=== PATIENT | female | born 2005 | race African-American/Black ===

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

== ENCOUNTER 2024-01-27 11:53 | Emergency (ER) | payer MEDICAID, SELFPAY ==
--- NOTE | 2024-01-27 12:21 | ED_ITS ---
HPI - General Adult General Stated complaint: Pain from Ovarian Cyst Related Data Home Medications ?Medication ?Instructions ?Recorded ?Confirmed melatonin 10 mg capsule 10 mg PO BEDTIME sleep 07/10/20 07/10/20 Previous Rx's ?Medication ?Instructions ?Recorded amoxicillin 875 mg-potassium 1 tab PO Q12H #20 tabs 10/30/20 clavulanate 125 mg tablet (Augmentin) diphenhydramine HCl 25 mg capsule 25 mg PO TID PRN allergic reaction 10/30/20 (Benadryl) #30 caps famotidine 20 mg tablet (Pepcid) 20 mg PO BID #20 tabs 10/30/20 prednisone 20 mg tablet 40 mg (2 x 20 mg) PO DAILY #10 tabs 10/30/20 azithromycin 250 mg tablet See Rx Instructions PO .COMPLEX #6 01/04/21 (Zithromax Z-Stephan) tabs ibuprofen 600 mg tablet 600 mg PO Q6H PRN pain #40 tabs 08/05/21 naproxen 500 mg tablet 500 mg PO BID 7 days #14 tabs 07/01/23 prednisone 20 mg tablet 20 mg PO DAILY 7 days #7 tabs 07/01/23 Allergies Allergy/AdvReac Type Severity Reaction Status Date / Time No Known Allergies Allergy Verified 12/15/23 12:40 [No Known Allergies*] [facility] Past Medical History Medical History Benign cyst of left breast Surgical History No significant past surgical history Family History Family History Mother No problems noted. Father No problems noted. Maternal Aunt Breast cancer Social History Social History (System 12/15/23 @ 12:40 by Ana Woods) Current occupational status: student Current occupation: [employer] Discharge Plan Discharge Clinical Impression: Eloped from emergency department Patient Disposition: Left W/O Completing Treatment Prescriptions: No Action diphenhydramine HCl [Benadryl] 25 mg capsule 25 mg PO TID PRN (Reason: allergic reaction) Qty: 30 0RF prednisone 20 mg tablet 40 mg PO DAILY Qty: 10 0RF famotidine [Pepcid] 20 mg tablet 20 mg PO BID Qty: 20 0RF amoxicillin-pot clavulanate [Augmentin] 875-125 mg tablet 1 tab PO Q12H Qty: 20 0RF azithromycin [Zithromax Z-Stephan] 250 mg tablet See Rx Instructions .ROUTE .COMPLEX Qty: 6 0RF Rx Instructions: take 500 mg today (day 1), then 250 mg for 4 days (days 2-5) ibuprofen 600 mg tablet 600 mg PO Q6H PRN (Reason: pain) Qty: 40 0RF prednisone 20 mg tablet 20 mg PO DAILY 7 Days Qty: 7 0RF naproxen 500 mg tablet 500 mg PO BID 7 Days Qty: 14 0RF melatonin 10 mg capsule 10 mg PO BEDTIME Interventions: LWBS Worksheet Last Done: 01/27/24 12:45 Discharge Date/Time: 01/27/24 13:09
== END 2024-01-27 13:09 | disposition left against medical advice (07) ==
LOC: HO.ED 13:06
PROVIDERS: Emergency Provider Emergency Medicine; PCP Pediatrics
DX: Z53.21 Procedure and treatment not carried out due to patient leaving prior to being seen by health care provider (principal); N83.209 Unspecified ovarian cyst, unspecified side

== ENCOUNTER 2024-02-01 17:25 | Outpatient (REF) | payer MEDICAID, SELFPAY ==
[2024-02-02 11:51] LABS: CT PCR NOT DETECTED (Not Detect.); NG PCR NOT DETECTED (Not Detect.)
== END 2024-02-01 17:26 | disposition home or self-care (01) ==
LOC: HO.HHCLNP 17:25
PROVIDERS: Visit Provider Pediatrics
DX: Z30.09 Encounter for other general counseling and advice on contraception (principal)
CPT/HCPCS: 0353U

== ENCOUNTER 2024-12-08 14:13 | Outpatient (REF) | payer MEDICAID, SELFPAY ==
--- OUTSIDE RECORDS SUMMARY | 2024-12-08 19:38 | XMS_ITS | Clinical Summary ---
Author Organization [employer] Address [address] [place] [address] [address] [place] [address] Care Team Providers Care Air Pollution Control Engineer Name Role Phone [facility] Primary Care Provider Allergies No known active allergies Medications No known medications Active Problems No known active problems Resolved Problems Problem Noted Date Diagnosed Date Resolved Date COVID-19 09/10/2022 01/26/2023 Reduced visual acuity 09/10/20222022 Encounters Date Type Department Care Team Description 12/08/2024 1:45 PM EST Office Visit [facility] [address] [place] [address] Aurora Alvarez CNM Checking of intrauterine device (Primary Dx); Encntr screen for infections w sexl mode of transmiss; Urinary frequency 12/08/2024 Travel 10/14/2024 Travel from Last 3 Months Immunizations Name Administration Dates Next Due DTaP 12/04/2008,08/07/2005,2004 DTaP / Hep B / IPV 2004,2004 HPV 9-Valent 12/16/2017,05/27/2016,02/18/2016 Hep A, ped/adol, 2 dose 02/18/2016 Hep A, ped/adol, 3 dose 02/04/2011 Hep B, Adolescent or Pediatric 2004,2003 Hib (HbOC) 08/07/2005, 5,2004,06/12 IPV 12/04/2008,2004 Influenza Injectable Quadriv alant Preservative Free IIV4 MDCK 11/21/2022 Influenza injectable quadriv alent preservative free 09/05/2020,06/27/2019,12/16/2017 Influenza live intranasal qu adrivalent LIAV4 08/11/2014 Influenza, IIV3, injectable 07/23/2011, 9,08/07/2005 MMR 12/04/2008,04/14/2005 Meningococcal MCV4P ACYW-135 09/05/2020,02/18/20 16 Pneumococcal Conjugate PCV 7 08/07/2005, 2004,2004,06/12 Rabies, intramuscular 03/29/2018 Tdap 02/18/2016 Varicella 12/04/2008,04/14/2005 Social History Tobacco Use Types Packs/Day Years Used Date Smoking Tobacco: Never Smokeless Tobacco: Never Tobacco Cessation:Counseling Given: Not Answered Alcohol Use Standard Drinks/Week Comments Never 0 (1 standard drink = 0.6 oz pur e alcohol) Depression Answer Date Recorded Patient Health Questionnaire-9 Score 2 01/26/2023 Housing Stability Answer Date Recorded What is your housing situation today? I have [employer] 07/22/[address] you li ve. Do you have problems with any of the following? None of the above 07/22/2023 Food Insecurity Answer Date Recorded Within the past 12 months, y ou worried that your food would run out before you got money to buy more: Never True 07/22/2023 Within the past 12 months,th e food you bought just didn't last and you didn't have enough money to get more: Never True Transportation Answer Date Recorded In the past 12 months, has l ack of transportation kept you from medical appts, meetings, work or from getting things needed for daily living? No 07/22/2023 Utilities Answer Date Recorded In the past 12 months, has t he electric, gas, oil or water company threatened to shut off services in your home? No 07/22/2023 Depression Answer Date Recorded Patient Health Questionnaire-2 Score 0 01/26/2023 Comments No Sex and Gender Information Value Date Recorded Sex Assigned at Female 08/04/2022 10:18 AM EDT Legal Sex Female 10:18 AM EDT Gender Identity Female 08/04/2022 10:18 AM EDT Sexual Orientation Straight 08/04/2022 10 :18 AM EDT Last Filed Vital Signs Vital Sign Reading Time Taken Comments Blood Pressure 130/60 12/08/2024 1:54 PM EST Pulse 84 12/08/2024 1:54 PM EST Temperature 36.2 ??C (97.1 ??F) 12/08/2024 1:54 PM ES T Respiratory Rate 20 12/08/2024 1:54 PM EST Oxygen Saturation 99% 12/08/2024 1:54 PM EST Inhaled Oxygen Concentration - - Weight 90.4 kg (199 lb 6.4 oz) 12/08/2024 1:54 P M EST Height 170.2 cm (5' 7 ) 12/08/2024 1:54 PM EST Body Mass Index 31.23 12/08/2024 1:54 PM EST Plan of Treatment Health Maintenance Due Date Last Done Comments Hepatitis B Vaccines (4 of 4 - 4-dose series) 2004 2004, 2004, 2004, Additional history exists Alcohol/Substance Use Screening 2016 Hepatitis A Vaccines (2 of 2 - 2-dose series) 08/20/2016 02/18/2016 Depression Screening 01/27/2024 01/26/2023, 01/27/20 23 COVID-19 Vaccine ( season) 2024 11/21/2022, 06/03/2021 Influenza Vaccine (#1) 2024 , 09/05/2020, 06/27/2019, Additional history exists SDOH Screening 01/24/2025 01/25/2024 Chlamydia and Gonorrhea Screening 01/31/2025 02/01/2024, 07/27/2023, 01/26/2023, Additional history exists Family Planning (PISQ) 12/08/2025 12/08/2024 Tobacco Screening 12/08/2025 12/08/2024 DTaP/Tdap/Td Vaccines (7 - Td or Tdap) 02/17/2026 02/18/2016, 12/04/2008, 08/07/2005, Additional history exists Zoster Vaccines (1 of 2) 2054 RSV Patients and Patients Aged 60 years or older (1 - 1-dose 75+ series) 2079 HIB Vaccines Completed 08/07/2005, 11/06, 2004, Additional history exists Pneumococcal Vaccine: Pediatrics (0 to 5 Years) and At-Risk Patients (6 to 49) Years) Aged Out 08/07/2005, 2004, 2004, Additional history exists No longer eligible based on patient's age to complete this topic IPV Vaccines Completed 12/04/2008, 11/06, 2004, Additional history exists HPV Vaccines Completed 12/16/2017, 05/06, 02/18/2016 Meningococcal Vaccine Completed 09/05/2020, 016 Hepatitis C Screening Completed 01/26/2023 HIV Screening Completed 07/28/2023, 01/26/2023 RSV under 20 months Aged Out No longe r eligible based on patient's age to complete this topic Rotavirus Vaccines Aged Out No longer eligible based on patient's age to complete this topic Procedures Procedure Name Priority Date/Time Associated Diagnosis Comments POCT URINALYSIS DIPSTICK Routine 12/08/2024 2:22 PM EST Urinary frequency POCT , URINE Routine 12/08/2024 2:14 PM EST Urinary frequency CHLAMYDIA/N. GONORRHOEAE RNA, TMA, UROGENITAL Routine 02/01/2024 11:19 AM EDT General counseling and advice on contraceptive management HIV ANTIBODY/ANTIGEN ([place] DPH) Routine 07/28/2023 8:56 AM EDT HEPATITIS C AB W/REFL TO HCV RNA, QN, PCR Routine 01/26/2023 3:33 PM EDT General counseling and advice on contraceptive management from Last 3 Months or Most Recently Relevant to Health Maintenance Results * POCT urinalysis dipstick manually resulted (12/08/2024 2:22 PM EST) Color, UA Yellow Clarity, UA Clear Glucose, UA Negative Bilirubin, UA Negative Ketones, UA Negative Spec Grav, UA 1.030 Blood, UA Negative Negative, None Detected pH, UA 5.5 Protein, UA 1+ 70+ Comment:30mg Urobilinogen, UA 1.0 Leukocytes, UA Negative Negative, Rare, Trace Nitrite, UA Negative Negative, None Detected QC Media Lot # [id number] Lot# Expiration Date Urine 12/08/2024 2:22 PM EST [facility] POINT OF CARE TEST ENTER/ EDIT ORDERABLES Final Result * POCT , urine manually resulted (12/08/2024 2:14 PM EST) Preg Test, Ur Negative Negative, Indeterminate, None Detected, Invalid, Specimen unsatisfactory for evaluation, Weakly Positive QC Media Lot # [id number] Lot# Expiration Date , Urine 12/08/2024 2:14 PM EST [facility] POINT OF CARE TEST ENTER/ EDIT ORDERABLES Final Result * Chlamydia/N. Gonorrhoeae RNA, TMA, Urogenitial (02/01/2024 11:19 AM EDT) CT PCR NOT DETECTED Not Detect. [facility] Comment:A not detected test result does not exclude the possibilityof infection because test results can be affected byimproper specimen collection, concurrent antibiotic therapy,or the number of organisms in the specimen which may bebelow the sensitivity of the test. As with many diagnostictests, results from the Xpert CT/NG assay should beinterpreted in conjunction with other laboratory andclinical data available to the clinician.Xpert CT/NG performance has not been evaluated in patientsless than 14 years of age. The assay should not be used forthe evaluationof suspected sexual abuse or for other medico-legalindications. Additional testing is recommended in anycircumstance when false positive or false negative resultscould lead to adverse medical, social or psychologicalconsequences. NG PCR NOT DETECTED Not Detect. [facility] Comment:A not detected test result does not exclude the possibilityof infection because test results can be affected byimproper specimen collection, concurrent antibiotic therapy,or the number of organisms in the specimen which may bebelow the sensitivity of the test. As with many diagnostictests, results from the Xpert CT/NG assay should beinterpreted in conjunction with other laboratory andclinical data available to the clinician.Xpert CT/NG performance has not been evaluated in patientsless than 14 years of age. The assay should not be used forthe evaluationof suspected sexual abuse or for other medico-legalindications. Additional testing is recommended in anycircumstance when false positive or false negative resultscould lead to adverse medical, social or psychologicalconsequences. Urine (Urine, Random) 02/01/2024 11:19 AM EDT 02/01/2024 5:36 PM EDT Narrative [facility] - 02/02/2024 11:51 AM EDT Urine Christiane Gomez DO LAB MICROBIOLOGY - GENERAL OR DERABLES Final Result [facility] [address] [place] [address] [phone] * HIV Ab/Ag ([place] H) (07/28/2023 8:56 AM EDT) Pathologist [facility] HIV AB/AG Nonreactive Nonreactive [facility] Comment:HIV-1 p24 Ag and/or HIV-1/HIV-2 Ab not detected.A test result that is nonreactive does not exclude thepossibility of exposure to or infection with HIV-1 and/orHIV-2. Nonreactive results in this assay for individualswith prior exposure to HIV-1 and/or HIV-2 may be due toantigen and antibody levels that are below the limit ofdetection of this assay.The [employer] HIV Ag/Ab Combo assay result andsupplemental assay results should be interpreted inconjunction with the patient's clinical presentation,history and other laboratory results. If the results areinconsistent with clinical evidence, additional testing issuggested to confirm the result. 07/28/2023 8:56 AM EDT 07/28/2023 11:13 AM EDT Aurora Kim CN LAB BLOOD ORDERABLES Rosemary baxter Result [facility] [address] [place] [address] [phone] * Hepatitis C Antibody with Reflex to HCV, RNA, Quantitative, Real-Time PCR (01/26/2023 3:33 PM EDT) Hepatitis C Antibody NON-REACT MARY NON-REACT MARY [facility] Diagnost Index 0.13 <1.00 [facility] Comment: HCV antibody was non-reactive. There is no laboratory evidence of HCV infection. In most cases, no further action is required. However, if recent HCV exposure is suspected, a test for HCV RNA (test code 05120) is suggested. For additional information please refer to http://education.Factabase/faq/GZW88y7 (This link is being provided for informational/ educational purposes only.) Blood Venous blood specimen / Unknown 01/26/2023 3:33 PM EDT 01/26/2023 3:34 PM EDT Christiane Gomez DO LAB BLOOD ORDERABLES Final Re sult Performing Organization Address City/[facility] Co de Phone Number [facility] [address], [place] [address] [email or web address] [address] [place] [address] from Last 3 Months or Most Recently Relevant to Health Maintenance Insurance HSN PARTIAL Care Teams Air Pollution Control Engineer Relationship Specialty Start Date End Date Sophia Chance FNP [address] [place] [phone] PCP - General Family Medicine 04/27/24
--- OUTSIDE RECORDS SUMMARY | 2024-12-08 19:39 | XMS_ITS | Encounter Summary ---
Author Organization [employer] Address [address] [place] [address] Care Team Providers Care Wood Casket Assembler Name Role Phone [facility] Primary Care Provider [phone] Encounter Details Date Type Department Care Team (Latest Contact Info) Description 12/08/2024 Travel Social History Tobacco Use Types Packs/Day Years Used Date Smoking Tobacco: Never Smokeless Tobacco: Never Alcohol Use Standard Drinks/Week Comments Never 0 [...] Orientation Straight 08/04/2022 10 :18 AM EDT documented as of this encounter Plan of Treatment Not on file documented as of this encounter Visit Diagnoses Not on filedocumented in this encounter Additional Health Concerns Assessment Noted Time PHQ-9 Depression Total Score: 2 01/27/20 23 6:42 PM EDT documented as of this encounter Care Teams Wood Casket Assembler Relationship Specialty Start Date End Date Sophia Chance FNP [address] [place] [phone] PCP - General Family Medicine 04/27/24 documented as of this encounter
--- OUTSIDE RECORDS SUMMARY | 2024-12-08 19:39 | XMS_ITS | Encounter Summary ---
Author Organization [employer] Address [address] [place] [address] Care Team Providers Care Lace Finisher Name Role Phone [facility] Primary Care Provider [phone] Encounter Details Date Type Department Care Team ([facility] st Contact Info) Description 12/08/2024 1:45 PM EST Office Visit [facility] [address] [place], [place] [phone] Aurora Alvarez CNM [address] [place], [place] [phone] Checking of intrauterine device (Primary Dx); Encntr screen for infections w sexl mode of transmiss; Urinary frequency Social History Tobacco Use Types Packs/Day Years [...] AM EDT documented as of this encounter Last Filed Vital Signs Vital Sign Reading [...] Mass Index 31.23 12/08/2024 1:54 PM EST documented in this encounter Progress Notes * Aurora Alvarez, RAQUEL - 12/08/2024 1:45 PM EST Subjective Patient ID: Jeri Martinez is a 19 y.o. female who presents for MAILER visit Notes some urinary frequency and suprapubic pressure recently. No other vaginal or urinary symptoms. Liletta inserted 10/2022. Gonorrhea/chlamydia/trichomonas, HIV and syphilis negative 07/2023. Strings not seen on previous visit, ultrasound showed IUD in good position, 1.5cm CL 12/2023. Gonorrhea/Chlamydia neg 01/2024. Happy with IUD, largely amenorrheic. Not planning in the next year. 1AMAB partner x 2y, no safety concerns. Agrees to Gonorrhea/Chlamydia testing today. Review of Systems Constitutional: Negative for chills and fever. Gastrointestinal: Negative for abdominal pain. Genitourinary: Positive for frequency. Negative for dyspareunia, dysuria, flank pain, hematuria, menstrual problem, pelvic pain, vaginal discharge and vaginal pain. Musculoskeletal: Negative for back pain. Objective BP 130/60 (BP Location: Left arm, Patient Position: Sitting, BP Cuff Size: Adult) Pulse 84 Temp97.1 ??F (36.2 ??C) (Temporal) Resp 20 Ht 5' 7 (1.702 m) Wt 199 lb 6.4 oz (90.4 kg) SpO2 99% BMI 31.23 kg/m?? Physical Exam Constitutional: Appearance: Normal appearance. Abdominal: Tenderness: There is no right CVA tenderness or left CVA tenderness. Genitourinary: General: Normal vulva. Labia: Right: No rash, tenderness, lesion or injury. Left: No rash, tenderness, lesion or injury. Vagina: Normal. No signs of injury and foreign body. No vaginal discharge, erythema, tenderness, bleeding or lesions. Cervix: No cervical motion tenderness, discharge, friability, lesion, erythema, cervical bleeding or eversion. Uterus: Normal. Not enlarged and not tender. Adnexa: Right adnexa normal and left adnexa normal. Right: No mass, tenderness or fullness. Left: No mass, tenderness or fullness. Comments: IUD strings noted just inside os. Body of IUD not palpable Neurological: Mental Status: She is alert. Psychiatric: Mood and Affect: Mood normal. Behavior: Behavior normal. Assessment/Plan Diagnoses and all orders for this visit: Checking of intrauterine device Remove/replace IUD by 8 y from insertion. May remove any time before then if desired. test negative today. Pap after she turns 20. Encntr screen for infections w sexl mode of transmiss - Chlamydia/N. Gonorrhoeae RNA, TMA, Urogenitial Urinary frequency - POCT , urine manually resulted - POCT urinalysis dipstick manually resulted - Culture, Urine, Routine UA not consistent with UTI. Will send culture and treat positive results. test negative. Specific gravity elevated, advised to increase water intake. documented in this encounter Plan of Treatment Scheduled Orders Name Type Priority Associated Diagnoses Orde r Schedule Culture, Urine, Routine Microbiology Routine Urinary frequency Ordered: 12/08/2024 Chlamydia/N. Gonorrhoeae RNA, TMA, Urogenitial Microbiology Routine Encntr screen for infections w sexl mode of transmiss Ordered: 12/08/2024 documented as of this encounter Procedures Procedure Name Priority Date/Time Associated Diagnosis Comments POCT URINALYSIS DIPSTICK Routine 12/08/2024 2:22 PM EST Urinary frequency POCT , URINE Routine 12/08/2024 2:14 PM EST Urinary frequency documented in this encounter Results * POCT urinalysis dipstick manually resulted [...] Media Lot # [id number] Lot# Expiration Date , Urine 12/08/2024 2:22 PM EST Aurora Alvarez [facility] POINT OF CARE TEST ENTER/ EDIT ORDERABLES Final Result * POCT , urine manually resulted (12/08/2024 2:14 PM EST) Preg Test, Ur Negative Negative, Indeterminate, None Detected, Invalid, Specimen unsatisfactory for evaluation, Weakly Positive QC Media Lot # [id number] Lot# Expiration Date ,[id number] Urine 12/08/2024 2:14 PM EST Aurora Alvarez [facility] POINT OF CARE TEST ENTER/ EDIT ORDERABLES Final Result documented in this encounter Visit Diagnoses Diagnosis Checking of intrauterine device- Primary Encntr screen for infections w sexl mode of transmiss Urinary frequency documented in this encounter Additional Health Concerns Assessment Noted Time PHQ-9 Depression Total Score: 2 01/27/20 23 6:42 PM EDT documented as of this encounter Care Teams Lace Finisher Relationship Specialty Start Date End Date Sophia Chance FNP [address] [place] [phone] PCP - General Family Medicine 04/27/24 documented as of this encounter
--- OUTSIDE RECORDS SUMMARY | 2024-12-08 19:39 | XMS_ITS | Encounter Summary ---
Author Organization [employer] Address [address] [place] [address] Care Team Providers Care Advertising Sales Consultant Name Role Phone Christiane Gomez DO Primary Care Provider [phone] [facility] Primary Care Provider [phone] Reason for Visit * Reason Onset Date Comments Appointment Request 07/16/2023 Encounter Details Date Type Department Care Team ([facility] st Contact Info) Description 07/16/2023 Telephone [facility] [address] [place], [place] [phone] Christiane Gomez DO [address] [place], [place] [phone] Appointment Request Social History Tobacco Use Types Packs/Day Years Used Date Smoking Tobacco: Never Smokeless Tobacco: Never Alcohol Use Standard Drinks/Week Comments Never 0 (1 standard drink = 0.6 oz pur e alcohol) Depression Answer Date Recorded Patient Health Questionnaire-9 Score 2 01/26/2023 Housing Stability Answer Date Recorded What is your housing situation today? I have [employer] 07/12/[address] you li ve. Do you have problems with any of the following? None of the above 07/12/2023 Food Insecurity Answer Date Recorded Within the past 12 months, y ou worried that your food would run out before you got money to buy more: Never True 07/12/2023 Within the past 12 months,th e food you bought just didn't last and you didn't have enough money to get more: Never True 05/2023 Transportation Answer Date Recorded In the past 12 months, has l ack of transportation kept you from medical appts, meetings, work or from getting things needed for daily living? No 07/12/2023 Utilities Answer Date Recorded In the past 12 months, has t he electric, gas, oil or water company threatened to shut off services in your home? No 07/12/2023 Depression Answer Date Recorded Patient Health Questionnaire-2 Score 0 01/26/2023 Comments Unknown Sex and Gender Information Value Date Recorded Sex Assigned at Female 08/04/2022 10:18 AM EDT Legal Sex Female 10:18 AM EDT Gender Identity Female 08/04/2022 10:18 AM EDT Sexual Orientation Straight 08/04/2022 10 :18 AM EDT documented as of this encounter Miscellaneous Notes * Telephone Encounter - Susanne Jones - 07/16/2023 9:22 AM EDT Tc from pt requesting a IUD f/u appointment. States she is getting some spotting and is aware that might be normal but wants to double check with provider. Pt is also requesting to get STD testing done. Pt is asymptomatic. Please contact pt at [phone] documented in this encounter Plan of Treatment Not on file documented as of this encounter Visit Diagnoses Not on filedocumented in this encounter Additional Health Concerns Assessment Noted Time PHQ-9 Depression Total Score: 2 01/27/20 23 6:42 PM EDT documented as of this encounter Care Teams Advertising Sales Consultant Relationship Specialty Start Date End Date Christiane Gomez DO [address] [place] [address] PCP - General Pediatrics 10/05/18 04/26/24 Sophia Chance FNP [address] [place] [address] PCP - General Family Medicine 04/27/24 documented as of this encounter
== END 2024-12-08 14:14 | disposition home or self-care (01) ==
LOC: HO.LNP 14:13
PROVIDERS: Visit Provider Advanced Practice Midwife
DX: R35.0 Frequency of micturition (principal)
CPT/HCPCS: 87086; 87491; 87591

== ENCOUNTER 2024-12-08 17:33 | Outpatient (REF) | payer MEDICAID, SELFPAY ==
[2024-12-09 12:07] LABS: CT PCR NOT DETECTED (Not Detect.); NG PCR NOT DETECTED (Not Detect.)
== END 2024-12-08 17:34 | disposition home or self-care (01) ==
LOC: HO.HHCLNP 17:33
PROVIDERS: Visit Provider Advanced Practice Midwife
DX: Z11.3 Encounter for screening for infections with a predominantly sexual mode of transmission (principal)
CPT/HCPCS: 87491; 87591